=== PATIENT | female | born 1980 | race African-American/Black ===

== ENCOUNTER 2017-05-16 07:47 | Emergency (ER) | payer OTHER ==
[~2017-05-16] VITALS: Ht 167.6 cm; Wt 67.7 kg
[2017-05-16 07:51] VITALS: BP 147/92
[2017-05-16] MEDS ORDERED: NACL 0.9% 1,000 ML IV SCH (07:57)
--- NOTE | 2017-05-16 07:59 | NUR ---
Patient ambulated to bed 08.
[2017-05-16] MEDS ORDERED: KETOROLAC 30 MG/ML VIAL IVP ONE (08:00)
--- NOTE | 2017-05-16 08:12 | NUR ---
37/F c/o lower back pain x1 week. Denies dysuria, burning with urination. Denies injury or trauma. Denies frequency or urgency. Denies fever or chills. AOX4, ambulatory with steady gait. VSS.
--- NOTE | 2017-05-16 08:23 | NUR ---
Patient being evaluated by Dr. Zamora at bedside.
[2017-05-16 08:33] LABS: ANION GAP 12.2 (8-16); CALCIUM 8.6 mg/dL (8.5-10.1); CARBON DIOXIDE 29.1 mmol/L (21-32); CREATININE 0.9 mg/dL (0.6-1.3); POTASSIUM 3.3 mmol/L (3.5-5.1)
--- NOTE | 2017-05-16 08:33 | NUR ---
Pt taken to CT via w/c.
[2017-05-16 08:38] LABS: TOTAL BILIRUBIN 0.4 mg/dL (0.0-1.0); TOTAL PROTEIN, SERUM 8.4 g/dL (6.4-8.2)
[2017-05-16 08:41] LABS: BASOPHILS # (AUTO) 0.2 K/uL (0.00-0.22); EOSINOPHILS # (AUTO) 0.2 K/uL (0-0.4); EOSINOPHILS % (AUTO) 3.1 % (0.0-4.0); HEMATOCRIT 40.2 % (36-48); HEMOGLOBIN 13.1 g/dL (12.0-16.0); LYMPHOCYTES # (AUTO) 2.2 K/uL (2.5-16.5); LYMPHOCYTES % (AUTO) 46.1 % (20.5-51.1); MEAN CORPUSCULAR HEMOGLOBIN 30 pg (27-31); MEAN CORPUSCULAR HGB CONC 33 g/dL (33-37); MEAN CORPUSCULAR VOLUME 90 fL (80-94); MONOCYTES # (AUTO) 0.5 K/uL (0.8-1.0); MONOCYTES % (AUTO) 9.3 % (1.7-9.3); NEUTROPHILS # (AUTO) 1.9 K/uL (1.8-7.7); NEUTROPHILS % (AUTO) 37.5 % (42.2-75.2); PLATELET COUNT (AUTO) 177 K/uL (140-450); RED BLOOD CELL COUNT(AUTO) 4.45 MIL/uL (4.20-5.40); RED CELL DISTRIBUTION WIDTH 12.7 % (11.6-13.7)
--- NOTE | 2017-05-16 08:42 | NUR ---
Patient back from CT via wheelchair per tech.
[2017-05-16 08:48] LABS: BILIRUBIN,URINE NEGATIVE (NEGATIVE); BLOOD, URINE 3+ (NEGATIVE); COLOR,URINE YELLOW (YELLOW); LEUKOCYTE ESTERASE ,URINE NEGATIVE (NEGATIVE); NITRITE, URINE NEGATIVE (NEGATIVE); PH,URINE 5.5 (5.0-9.0); PROTEIN,URINE TRACE (NEGATIVE); UGLUCOSE NEGATIVE (NEGATIVE)
[2017-05-16 09:12] LABS: APPEARANCE,URINE HAZY (CLEAR)
[2017-05-16 09:13] LABS: BACTERIA,URINE 1+ /HPF (None Seen); MUCUS,URINE 1+ /LPF (None Seen); RBC,URINE 0-5 (RARE) /HPF (0-5); SQUAMOUS EPITHELIAL CELL,UR 4-10 (MOD) /LPF (0-3 (FEW))
--- NOTE | 2017-05-16 09:14 | NUR ---
Patient appears to be resting comfortably in bed. VSS. Warm blankets provided. Placed in position of comfort.
--- NOTE | 2017-05-16 09:31 | NUR ---
AWAITING FOR CTSCAN RESULTS
--- NOTE | 2017-05-16 09:46 | NUR ---
Pt resting comfortably at this time. Pain medication offered. Pt states "I'm okay right now." I advised patient to let me know if she wants pain medication. Pt verbalized understanding. VSS.
[2017-05-16 10:20] VITALS: BP 111/75
--- NOTE | 2017-05-16 10:20 | NUR ---
Chart checked and completed. The patient's care was reviewed and supervised by Babar Weber RN.
--- NOTE | 2017-05-16 10:20 | NUR ---
Patient discharged with v/s stable. Written and verbal after care instructions given and explained. Patient alert, oriented and verbalized understanding of instructions. Ambulatory with steady gait. All questions addressed prior to discharge. ID band removed. Patient advised to follow up with PMD. Rx of NORCO,TYLENOL,DOXYCYCLINE given. Patient educated on indication of medication including possible reaction and side effects. Opportunity to ask questions provided and answered.
== END 2017-05-16 10:20 | disposition home or self-care (01) ==
LOC: MED 07:47
DX: N23 Unspecified renal colic (principal); R31.9 Hematuria, unspecified; M54.5 Low back pain; I10 Essential (primary) hypertension
CPT/HCPCS: 36415; 74176; 80053; 81001; 81025; 82150; 83690; 84703; 85025; 87086; 96361; 96374; 99285; J1885; J7030